=== PATIENT | male | born 1955 ===

== ENCOUNTER 2021-02-19 05:43 | Emergency (ER) | payer OTHER ==
[~2021-02-19] VITALS: Ht 185.4 cm; Wt 122.5 kg
[2021-02-19] MEDS ORDERED: cloNIDine HCL 0.1 MG TAB PO ONE (06:15)
[2021-02-19 08:20] VITALS: BP 133/72
== END 2021-02-19 08:26 | disposition home or self-care (01) ==
LOC: EDBD 05:43 → ER 05:43
DX: S46.911A Strain of unspecified muscle, fascia and tendon at shoulder and upper arm level, right arm, initial encounter (principal); S20.211A Contusion of right front wall of thorax, initial encounter; R51.9 Headache, unspecified; E11.9 Type 2 diabetes mellitus without complications; M10.9 Gout, unspecified; V43.52XA Car driver injured in collision with other type car in traffic accident, initial encounter; Y93.89 Activity, other specified; Y99.8 Other external cause status; Y92.410 Unspecified street and highway as the place of occurrence of the external cause
CPT/HCPCS: 71250; 73030